=== PATIENT | female | born 1990 | race African-American/Black ===

== ENCOUNTER 2020-02-17 10:28 | Emergency (ER) | payer OTHER ==
[~2020-02-17] VITALS: Ht 157.5 cm; Wt 65.3 kg
[2020-02-17] MEDS ORDERED: BACTRIM DS TAB1 EACH PO (16:38)
== END 2020-02-17 16:44 | disposition home or self-care (01) ==
LOC: ER 10:28
DX: N92.5 Other specified irregular menstruation (principal); N39.0 Urinary tract infection, site not specified